=== PATIENT | female | born 1975 | race Caucasian/White ===

== ENCOUNTER 2017-09-23 19:38 | Inpatient (IN) | payer BC, OTHER ==
[~2017-09-23] VITALS: Ht 170.2 cm; Wt 72.6 kg
[2017-09-23] MEDS ORDERED: CYCLOBENZAPRINE 10MG TABLET PO PRN (23:00)
[2017-09-23] MEDS ORDERED: DOCUSATE SODIUM 250 MG CAPSULE PO PRN (23:00)
[2017-09-23] MEDS ORDERED: MIRALAX 17 GM POWD.PACK PO PRN (23:00)
[2017-09-23] MEDS ORDERED: DIAZEPAM 10 MG TABLET PO PRN ×2 (23:00)
[2017-09-23] MEDS ORDERED: CLONIDINE HCL 0.1 MG TABLET PO PRN (23:00)
[2017-09-23] MEDS ORDERED: LORAZEPAM 2 MG/1 ML VIAL IM PRN (23:00)
[2017-09-23] MEDS ORDERED: LOPERAMIDE HCL 2 MG CAPSULE PO PRN ×2 (23:00)
[2017-09-23] MEDS ORDERED: DICYCLOMINE HCL 20 MG TABLET PO PRN (23:00)
[2017-09-23] MEDS ORDERED: DIAZEPAM 5 MG TABLET PO PRN (23:00)
[2017-09-23] MEDS ORDERED: MAG HYDROX/AL HYDROX/SIMETH 30 ML LIQUID UDC PO PRN (23:00)
[2017-09-23] MEDS ORDERED: ONDANSETRON 4 MG/2 ML VIAL IM PRN (23:00)
[2017-09-23] MEDS ORDERED: BUPRENORPHINE HCL 2 MG TAB.SUBL SL PRN (23:00)
[2017-09-23] MEDS ORDERED: diphenhydrAMINE 50 MG CAPSULE PO PRN (23:00)
[2017-09-23] MEDS ORDERED: hydrALAZINE HCL 50 MG TABLET PO PRN (23:15)
[2017-09-23 23:45] LABS: *URINE HCG, QUAL NEGATIVE (NEGATIVE)
[2017-09-23] MEDS ORDERED: PHENOBARBITAL 60 MG TABLET PO SCH (23:50)
[2017-09-24] VITALS: BP 113/79
[2017-09-24] MEDS ORDERED: CYCL5TAB PO
[2017-09-24] MEDS ORDERED: ONDA4TAB5 PO
[2017-09-24] MEDS ORDERED: QUET100T PO
[2017-09-24] MEDS ORDERED: GABA600T2 PO
[2017-09-24] MEDS ORDERED: ALPR1TAB2 PO
[2017-09-24] MEDS ORDERED: BUPR1FIL SL
[2017-09-24 00:20] LABS: *AMPHETAMINE, URINE NEGATIVE (NEGATIVE); *BARBITURATE, URINE NEGATIVE (NEGATIVE); *CANNABINOID, URINE POSITIVE (NEGATIVE); *COCCAINE, URINE NEGATIVE (NEGATIVE); *OPIATE, URINE NEGATIVE (NEGATIVE); *PHENCYCLIDINE SCREEN,URINE NEGATIVE (NEGATIVE)
[2017-09-24] MEDS: MAGNESIUM HYDROXIDE 30 ML LIQUID UDC PO PRN ×2 (01:16→20:50)
[2017-09-24 04:00] VITALS: BP 104/62
[2017-09-24 08:00] VITALS: BP 98/61
[2017-09-24 08:30] LABS: BASOPHILS # (AUTO) 0.1 K/uL (0.0-8.0); BASOPHILS % (AUTO) 0.6 % (0.0-2.0); EOSINOPHILS # (AUTO) 0.3 K/uL (0.0-0.7); EOSINOPHILS % (AUTO) 3.4 % (0.0-7.0); HEMATOCRIT 36.2 % (31.2-41.9); HEMOGLOBIN 12.8 g/dL (10.9-14.3); LYMPHOCYTES # (AUTO) 2.1 K/uL (20.0-40.0); LYMPHOCYTES % (AUTO) 23.9 % (20.5-51.5); MEAN CORPUSCULAR HGB CONC 35 g/dL (32.3-35.6); MONOCYTES # (AUTO) 0.7 K/uL (2.0-10.0); MONOCYTES % (AUTO) 8.2 % (0.0-11.0); NEUTROPHILS # (AUTO) 5.7 K/uL (1.8-8.9); NEUTROPHILS % (AUTO) 63.9 % (38.5-71.5); PLATELET COUNT (AUTO) 144 K/uL (179-408)
[2017-09-24] MEDS: PHENOBARBITAL 60 MG TABLET PO SCH ×4 (08:50→20:45)
[2017-09-24 08:56] LABS: ETHANOL < 3 MG/DL (0-0); MEAN CORPUSCULAR HEMOGLOBIN 36.7 uug (24.7-32.8); MEAN CORPUSCULAR VOLUME 103.6 fL (75.5-95.3)
[2017-09-24] MEDS ORDERED: TUBERCULIN,PURIF.PROT.DERIV. 5 TU/0.1 ML TEST ID ONE (09:00)
[2017-09-24 09:05] LABS: ALANINE AMINOTRANSFERASE 149 U/L (14-59); ALKALINE PHOSPHATASE 57 U/L (50-136); ASPARTATE AMINOTRANSFERASE 407 U/L (15-37); BILIRUBIN,TOTAL 0.8 mg/dL (0.2-1.0); CARBON DIOXIDE 30 mmol/L (21-32); CHLORIDE 98 mmol/L (98-107); CREATININE 0.7 mg/dL (0.6-1.3); GLUCOSE 150 mg/dL (74-106); MAGNESIUM 2.2 mg/dL (1.8-2.4); POTASSIUM 3.5 mmol/L (3.5-5.1); TOTAL PROTEIN, SERUM 6.6 g/dL (6.4-8.2); UREA NITROGEN, BLOOD 4 mg/dL (7-18)
[2017-09-24 09:13] LABS: THYROID STIMULATING HORMONE 0.015 mIU/mL (0.358-3.740)
[2017-09-24 12:12] VITALS: BP 123/71
[2017-09-24] MEDS: ACETAMINOPHEN 325 MG TABLET PO PRN (13:32)
[2017-09-24 16:00] VITALS: BP 122/74
[2017-09-24 20:25] VITALS: BP 134/84
[2017-09-24] MEDS: QUETIAPINE FUMARATE 100 MG TABLET PO PRN (20:45)
[2017-09-24] MEDS: BUPRENORPHINE HCL 2 MG TAB.SUBL SL PRN (20:45)
[2017-09-24] MEDS: ONDANSETRON ODT 4 MG TAB.RAPDIS SL PRN (20:51)
[2017-09-25 00:12] VITALS: BP 116/79
[2017-09-25 04:29] VITALS: BP 115/63
[2017-09-25 07:58] LABS: BASOPHILS % (AUTO) 0.3 % (0.0-2.0); EOSINOPHILS # (AUTO) 0.4 K/uL (0.0-0.7); EOSINOPHILS % (AUTO) 3.5 % (0.0-7.0); HEMATOCRIT 34.8 % (31.2-41.9); HEMOGLOBIN 12.3 g/dL (10.9-14.3); LYMPHOCYTES # (AUTO) 2.3 K/uL (20.0-40.0); LYMPHOCYTES % (AUTO) 21.1 % (20.5-51.5); MEAN CORPUSCULAR HEMOGLOBIN 36.4 uug (24.7-32.8); MEAN CORPUSCULAR HGB CONC 35 g/dL (32.3-35.6); MEAN CORPUSCULAR VOLUME 103.4 fL (75.5-95.3); MONOCYTES # (AUTO) 0.9 K/uL (2.0-10.0); MONOCYTES % (AUTO) 8.2 % (0.0-11.0); NEUTROPHILS # (AUTO) 7.2 K/uL (1.8-8.9); NEUTROPHILS % (AUTO) 66.9 % (38.5-71.5); PLATELET COUNT (AUTO) 147 K/uL (179-408); RED BLOOD CELL COUNT(AUTO) 3.37 MIL/uL (3.63-4.92); WHITE BLOOD COUNT (AUTO) 10.7 K/uL (3.8-11.8)
[2017-09-25 08:10] LABS: HEPATITIS B SURFACE AG Negative (Negative)
[2017-09-25 08:34] VITALS: BP 104/62
[2017-09-25] MEDS: PHENOBARBITAL 60 MG TABLET PO SCH ×3 (08:36→20:39)
[2017-09-25] MEDS: ESCITALOPRAM OXALATE 10 MG TABLET PO SCH (08:36)
[2017-09-25] MEDS ORDERED: HYDROXYZINE PAMOATE 25 MG CAPSULE PO PRN (09:00)
[2017-09-25 09:03] LABS: BILIRUBIN,DIRECT 0.1 mg/dL (0.0-0.2); BILIRUBIN,TOTAL 0.3 mg/dL (0.2-1.0); CREATININE 0.7 mg/dL (0.6-1.3); PHOSPHOROUS 3.3 mg/dL (2.5-4.9); POTASSIUM 3.3 mmol/L (3.5-5.1); TOTAL PROTEIN, SERUM 6.2 g/dL (6.4-8.2)
[2017-09-25 09:14] LABS: THYROID STIMULATING HORMONE 3.014 mIU/mL (0.358-3.740)
[2017-09-25] MEDS ORDERED: MAGNESIUM CITRATE 296 ML BOTTLE PO ONE (10:30)
[2017-09-25 13:19] VITALS: BP 125/79
[2017-09-25] MEDS: BUPRENORPHINE HCL 2 MG TAB.SUBL SL PRN ×2 (14:03→20:50)
[2017-09-25] MEDS ORDERED: POTASSIUM CHLORIDE 20 MEQ TAB.PRT.SR PO ONE (15:00)
[2017-09-25 17:14] VITALS: BP 111/75
[2017-09-25 20:00] VITALS: BP 146/93
[2017-09-25] MEDS: QUETIAPINE FUMARATE 100 MG TABLET PO PRN (20:40)
[2017-09-25] MEDS: HYDROXYZINE PAMOATE 25 MG CAPSULE PO PRN (20:57)
[2017-09-26] VITALS (7 sets, daily range): BP systolic 95–152; BP diastolic 57–93
[2017-09-26] MEDS ORDERED: MAGNESIUM CITRATE 296 ML BOTTLE PO PRN (08:00)
[2017-09-26] MEDS: FOLIC ACID 1 MG TABLET PO SCH ×2 (08:28→08:30)
[2017-09-26] MEDS: ESCITALOPRAM OXALATE 10 MG TABLET PO SCH (08:28)
[2017-09-26] MEDS: PHENOBARBITAL 60 MG TABLET PO SCH ×3 (08:29→16:30)
[2017-09-26] MEDS: HYDROXYZINE PAMOATE 25 MG CAPSULE PO PRN ×2 (09:16→16:31)
[2017-09-26] MEDS: ACETAMINOPHEN 325 MG TABLET PO PRN (09:17)
[2017-09-26] MEDS: BUPRENORPHINE HCL 2 MG TAB.SUBL SL PRN ×3 (10:29→20:43)
[2017-09-26] MEDS: QUETIAPINE FUMARATE 100 MG TABLET PO PRN (20:42)
[2017-09-26] MEDS: ONDANSETRON ODT 4 MG TAB.RAPDIS SL PRN (20:53)
[2017-09-26] MEDS ORDERED: PHENOBARBITAL 60 MG TABLET PO SCH (21:00)
[2017-09-27] VITALS: BP 122/80
[2017-09-27 04:00] VITALS: BP 128/78
[2017-09-27 08:30] VITALS: BP 114/76
[2017-09-27] MEDS: HYDROXYZINE PAMOATE 25 MG CAPSULE PO PRN ×2 (08:47→21:12)
[2017-09-27] MEDS: PHENOBARBITAL 60 MG TABLET PO SCH ×3 (08:47→20:24)
[2017-09-27] MEDS: ACETAMINOPHEN 325 MG TABLET PO PRN ×2 (08:47→21:12)
[2017-09-27] MEDS: BUPRENORPHINE HCL 2 MG TAB.SUBL SL PRN ×3 (08:48→21:13)
[2017-09-27] MEDS: FOLIC ACID 1 MG TABLET PO SCH (08:48)
[2017-09-27] MEDS: ESCITALOPRAM OXALATE 10 MG TABLET PO SCH (08:48)
[2017-09-27 13:55] VITALS: BP 105/69
[2017-09-27 17:00] VITALS: BP 131/84
[2017-09-27 20:00] VITALS: BP 149/86
[2017-09-27] MEDS: CLONIDINE HCL 0.1 MG TABLET PO SCH (21:00)
[2017-09-27] MEDS: QUETIAPINE FUMARATE 100 MG TABLET PO PRN (21:12)
[2017-09-28] VITALS: BP 92/61
[2017-09-28 08:00] VITALS: BP 141/85
[2017-09-28] MEDS: FOLIC ACID 1 MG TABLET PO SCH (09:13)
[2017-09-28] MEDS: CLONIDINE HCL 0.1 MG TABLET PO SCH ×2 (09:14→21:23)
[2017-09-28] MEDS: ESCITALOPRAM OXALATE 10 MG TABLET PO SCH (09:14)
[2017-09-28] MEDS: PHENOBARBITAL 60 MG TABLET PO SCH ×2 (09:15→20:34)
[2017-09-28] MEDS: HYDROXYZINE PAMOATE 25 MG CAPSULE PO PRN ×3 (09:20→21:24)
[2017-09-28] MEDS ORDERED: BUPRENORPHINE HCL 2 MG TAB.SUBL SL PRN (11:45)
[2017-09-28 12:00] VITALS: BP 141/90
[2017-09-28] MEDS: BUPRENORPHINE HCL 2 MG TAB.SUBL SL PRN ×3 (12:16→21:24)
[2017-09-28 13:20] VITALS: BP 132/88
[2017-09-28] MEDS ORDERED: CLON0.1T14 PO (13:42)
[2017-09-28] MEDS ORDERED: HYDR-3895 PO (13:42)
[2017-09-28] MEDS ORDERED: FOLI1TAB16 PO (13:42)
[2017-09-28] MEDS ORDERED: ESCI10TA PO (13:42)
[2017-09-28] MEDS ORDERED: DICY20TA28 PO (13:42)
[2017-09-28 16:00] VITALS: BP 117/64
[2017-09-28 20:00] VITALS: BP 113/74
[2017-09-28] MEDS: QUETIAPINE FUMARATE 100 MG TABLET PO PRN (21:24)
[2017-09-29 08:00] VITALS: BP 116/78
[2017-09-29] MEDS: FOLIC ACID 1 MG TABLET PO SCH (08:52)
[2017-09-29] MEDS: ESCITALOPRAM OXALATE 10 MG TABLET PO SCH (08:53)
[2017-09-29] MEDS: CLONIDINE HCL 0.1 MG TABLET PO SCH ×2 (08:54→21:00)
[2017-09-29] MEDS: BUPRENORPHINE HCL 2 MG TAB.SUBL SL PRN (08:54)
[2017-09-29] MEDS ORDERED: PHENOBARBITAL 60 MG TABLET PO SCH (09:00)
[2017-09-29 12:00] VITALS: BP 117/76
[2017-09-29 16:00] VITALS: BP 109/77
[2017-09-29 20:00] VITALS: BP 133/88
[2017-09-29] MEDS: QUETIAPINE FUMARATE 100 MG TABLET PO PRN (21:38)
[2017-09-29] MEDS: HYDROXYZINE PAMOATE 25 MG CAPSULE PO PRN (21:38)
[2017-09-30 08:00] VITALS: BP 135/92
[2017-09-30 08:43] VITALS: BP 135/92
[2017-09-30] MEDS: ESCITALOPRAM OXALATE 10 MG TABLET PO SCH (08:43)
[2017-09-30] MEDS: CLONIDINE HCL 0.1 MG TABLET PO SCH (08:43)
[2017-09-30] MEDS: FOLIC ACID 1 MG TABLET PO SCH (08:43)
[2017-09-30] MEDS: HYDROXYZINE PAMOATE 25 MG CAPSULE PO PRN (08:58)
== END 2017-09-30 09:24 | disposition other institution (70) | DRG 895 ==
LOC: EDBD 22:06 → SRC 22:06
PROVIDERS: ADMIT Internal Medicine; ATTEND Internal Medicine
PROC: HZ2ZZZZ Detoxification Services for Substance Abuse Treatment (ICD-10-PCS; principal; 2017-09-23)
PROC: HZ41ZZZ Group Counseling for Substance Abuse Treatment, Behavioral (ICD-10-PCS; 2017-09-24)
DX: F13.231 Sedative, hypnotic or anxiolytic dependence with withdrawal delirium (principal); M32.9 Systemic lupus erythematosus, unspecified; D69.6 Thrombocytopenia, unspecified; F33.2 Major depressive disorder, recurrent severe without psychotic features; F11.23 Opioid dependence with withdrawal; G89.4 Chronic pain syndrome; E28.2 Polycystic ovarian syndrome; N80.9 Endometriosis, unspecified; Z85.3 Personal history of malignant neoplasm of breast; Z90.13 Acquired absence of bilateral breasts and nipples; Z83.3 Family history of diabetes mellitus; Z81.8 Family history of other mental and behavioral disorders; Z81.1 Family history of alcohol abuse and dependence; G47.00 Insomnia, unspecified; F12.10 Cannabis abuse, uncomplicated; F41.9 Anxiety disorder, unspecified; Z88.8 Allergy status to other drugs, medicaments and biological substances; M06.9 Rheumatoid arthritis, unspecified; K27.7 Chronic peptic ulcer, site unspecified, without hemorrhage or perforation; F17.210 Nicotine dependence, cigarettes, uncomplicated; E53.8 Deficiency of other specified B group vitamins; R73.01 Impaired fasting glucose; E07.81 Sick-euthyroid syndrome; F10.10 Alcohol abuse, uncomplicated; Y90.0 Blood alcohol level of less than 20 mg/100 ml; E87.6 Hypokalemia; I15.9 Secondary hypertension, unspecified; Z79.899 Other long term (current) drug therapy
CPT/HCPCS: 36415; 70030-TC; 74018; 80307; 80346; 80349; 82746; 83735; 84100; 84443; 84480; 84703; 85025; 86580; 86592; 86705; 86803; 87340; 87806; A4663; G0480; J8499; Q0162